=== PATIENT | male | born 1950 | race Caucasian/White ===

== ENCOUNTER → 2017-06-01 | Outpatient (CLI) | payer MEDICARE ==
[~2017-06-01] MED LIST: ASPI-496 PO; GLIP10TA13 PO; METF10002 PO; METO50TA82 PO; SAW1CAPS2 PO; SIMV40TA3 PO
== END ==
LOC: CFH 07:56
PROVIDERS: ATTEND Internal Medicine Cardiovascular Disease
DX: I71.4 Abdominal aortic aneurysm, without rupture (principal); I10 Essential (primary) hypertension; E11.9 Type 2 diabetes mellitus without complications
CPT/HCPCS: 78452; 93017; 93978; A9502

== ENCOUNTER 2017-07-30 22:43 | Observation (INO) | payer MEDICARE ==
[~2017-07-30] VITALS: Ht 177.8 cm; Wt 84.3 kg
[2017-07-30] MEDS ORDERED: SODIUM CHLORIDE FLUSH 10ML SYR IVF ONE (23:30)
[2017-07-30 23:39] LABS: BASOPHILS # (AUTO) 0.03 x10^3/uL (0-0.1); BASOPHILS % (AUTO) 1 % (0-1); EOSINOPHILS # (AUTO) 0.32 x10^3/uL (0-0.4); EOSINOPHILS % (AUTO) 7 % (1-7); LYMPHOCYTES # (AUTO) 1.14 x10^3/uL (1-3.4); LYMPHOCYTES % (AUTO) 24 % (22-44); MD NO; MEAN CORPUSCULAR HEMOGLOBIN 31.9 pg (27.5-34.5); MEAN CORPUSCULAR HGB CONC 33.8 g/dL (33.2-36.2); MEAN CORPUSCULAR VOLUME 94.3 fL (81-97); MONOCYTES # (AUTO) 0.51 x10^3/uL (0.2-0.8); MONOCYTES % (AUTO) 11 % (2-9); NEUTROPHILS % (AUTO) 58 % (42-75); PLATELET COUNT 147 x10^3/uL (130-400); RED BLOOD COUNT 4.21 x10^6/uL (4.38-5.82); RED CELL DISTRIBUTION WIDTH 14.1 % (9.4-14.8)
[2017-07-30] MEDS ORDERED: ASPIRIN 81 MG TABLET CHEW ONE (23:43)
[2017-07-30 23:51] LABS: ALANINE AMINOTRANSFERASE 24 U/L (12-78); ALBUMIN 3.8 g/dL (3.4-5.0); ANION GAP 8 mmol/L (5-15); CALCIUM 8.8 mg/dL (8.5-10.1); CHLORIDE 105 mmol/L (98-107); CREATININE 1.51 mg/dL (0.7-1.3)
[2017-07-30 23:55] LABS: ALKALINE PHOSPHATASE 74 U/L (45-117); BILIRUBIN,TOTAL 0.6 mg/dL (0.2-1.0); TOTAL PROTEIN 7.1 g/dL (6.4-8.2); TROPONIN I < 0.015 ng/mL (0.000-0.045)
[2017-07-31] MEDS ORDERED: ASPIRIN 81 MG TABLET CHEW PO ONE
[2017-07-31] MEDS ORDERED: MORPHINE SULFATE 4 MG/ML, 1ML IVPush PRN (01:00)
[2017-07-31] MEDS ORDERED: ONDANSETRON 2MG/ML, 2ML IVPush PRN ×2 (01:00→01:30)
[2017-07-31] MEDS ORDERED: SODIUM CHLORIDE 0.9% 1,000 ML IV SCH (01:25)
[2017-07-31] MEDS ORDERED: ACETAMINOPHEN 325 MG TABLET PO PRN (01:30)
[2017-07-31] MEDS ORDERED: DEXTROSE 50%, 50ML SYRINGE IVPush PRN (01:30)
[2017-07-31] MEDS ORDERED: hydrALAzine 20 MG/ML, 1ML IVPush PRN (01:30)
[2017-07-31] MEDS ORDERED: DEXTROSE 4 GM TAB.CHEW PO PRN (01:30)
[2017-07-31] MEDS ORDERED: GLUCAGON 1 MG IM PRN (01:30)
[2017-07-31] MEDS ORDERED: TAMS0.4C2 PO (01:38)
[2017-07-31] MEDS ORDERED: CLOP75TA52 PO (01:38)
[2017-07-31 02:22] LABS: TROPONIN I < 0.015 ng/mL (0.000-0.045)
[2017-07-31 07:47] VITALS: BP 146/81
[2017-07-31 08:19] LABS: ANION GAP 8 mmol/L (5-15); CALCIUM 8.4 mg/dL (8.5-10.1); CHLORIDE 108 mmol/L (98-107); CREATININE 1.13 mg/dL (0.7-1.3)
[2017-07-31 08:23] LABS: TROPONIN I < 0.015 ng/mL (0.000-0.045)
[2017-07-31] MEDS ORDERED: ASPIRIN 81 MG TABLET EC PO SCH (09:00)
[2017-07-31] MEDS ORDERED: TEMPLATE NON-FORMULARY MED. (Metformin Hcl** 1,000 MG) PO SCH (09:00)
[2017-07-31] MEDS ORDERED: [UNRECOGNIZED DRUG - OTHER] PO SCH (09:00)
[2017-07-31] MEDS ORDERED: SODIUM CHLORIDE FLUSH 10ML SYR IVF SCH (09:00)
[2017-07-31] MEDS ORDERED: SAW PALMETTO XTR PO SCH (09:00)
[2017-07-31] MEDS ORDERED: CLOPIDOGREL 75 MG TABLET PO SCH (09:00)
[2017-07-31] MEDS ORDERED: TAMSULOSIN 0.4 MG CAP.ER.24H PO SCH (09:00)
[2017-07-31] MEDS ORDERED: METOPROLOL TARTRATE 50 MG TABLET PO SCH (09:00)
[2017-07-31] MEDS ORDERED: ZINC PICOLIN PO SCH (09:00)
[2017-07-31] MEDS ORDERED: ASPIRIN 81 MG TABLET CHEW ONE (10:01)
[2017-07-31] MEDS ORDERED: CLOPIDOGREL 75 MG TABLET ONE (10:01)
[2017-07-31] MEDS ORDERED: TAMSULOSIN 0.4 MG CAP.ER.24H ONE (10:01)
[2017-07-31] MEDS ORDERED: METOPROLOL TARTRATE 50 MG TABLET ONE (10:01)
[2017-07-31] MEDS ORDERED: SIMVASTATIN 40 MG TABLET PO SCH (21:00)
== END 2017-07-31 11:48 | disposition home or self-care (01) ==
LOC: ED 23:59 → EDIP 07-31 01:09 → INTOOBSV 07-31 01:09 → DCLOUNGE 07-31 11:45
PROVIDERS: ADMIT Hospitalist; ATTEND Hospitalist
DX: R07.89 Other chest pain (principal); E11.9 Type 2 diabetes mellitus without complications; I25.10 Atherosclerotic heart disease of native coronary artery without angina pectoris; I10 Essential (primary) hypertension; E78.5 Hyperlipidemia, unspecified; E78.00 Pure hypercholesterolemia, unspecified; I25.2 Old myocardial infarction; N28.9 Disorder of kidney and ureter, unspecified; N17.9 Acute kidney failure, unspecified; Z95.5 Presence of coronary angioplasty implant and graft; Z87.442 Personal history of urinary calculi
CPT/HCPCS: 36415; 71045; 80048; 80053; 82962; 84484; 85025; 93005; 96360; 96361; 99285; G0378; J7030

== ENCOUNTER 2017-11-17 23:38 | Emergency (ER) | payer MEDICARE ==
[~2017-11-17] VITALS: Ht 177.8 cm; Wt 81.0 kg
[~2017-11-17 23:38] MED LIST changes: +CLOP75TA52 PO; +TAMS0.4C2 PO
[2017-11-17 23:40] VITALS: BP 168/92
[2017-11-18 00:15] LABS: BASOPHILS # (AUTO) 0.02 x10^3/uL (0-0.1); BASOPHILS % (AUTO) 0 % (0-1); EOSINOPHILS # (AUTO) 0.23 x10^3/uL (0-0.4); EOSINOPHILS % (AUTO) 4 % (1-7); LYMPHOCYTES # (AUTO) 1.23 x10^3/uL (1-3.4); LYMPHOCYTES % (AUTO) 20 % (22-44); MD NO; MEAN CORPUSCULAR HEMOGLOBIN 32.2 pg (27.5-34.5); MEAN CORPUSCULAR HGB CONC 34.2 g/dL (33.2-36.2); MEAN CORPUSCULAR VOLUME 94.1 fL (81-97); MEAN PLATELET VOLUME 8.4 fL (7.4-10.4); MONOCYTES # (AUTO) 0.55 x10^3/uL (0.2-0.8); MONOCYTES % (AUTO) 9 % (2-9); NEUTROPHILS # (AUTO) 4.03 x10^3/uL (1.8-6.8); NEUTROPHILS % (AUTO) 67 % (42-75); PLATELET COUNT 174 x10^3/uL (130-400); RED BLOOD COUNT 4.91 x10^6/uL (4.38-5.82); RED CELL DISTRIBUTION WIDTH 13.5 % (9.4-14.8)
[2017-11-18 00:23] LABS: INTERNATIONAL NORMALIZED RATIO 0.97 (0.93-1.1)
[2017-11-18 00:26] LABS: ALANINE AMINOTRANSFERASE 30 U/L (12-78); ALBUMIN 4.5 g/dL (3.4-5.0); ANION GAP 7 mmol/L (5-15); CALCIUM 9.8 mg/dL (8.5-10.1); CHLORIDE 108 mmol/L (98-107)
[2017-11-18 00:29] LABS: ALKALINE PHOSPHATASE 63 U/L (45-117); BILIRUBIN,TOTAL 0.7 mg/dL (0.2-1.0); TOTAL PROTEIN 8.2 g/dL (6.4-8.2)
== END 2017-11-18 03:23 | disposition home or self-care (01) ==
LOC: ED 11-18 03:20
DX: S22.32XA Fracture of one rib, left side, initial encounter for closed fracture (principal); S09.8XXA Other specified injuries of head, initial encounter; I25.2 Old myocardial infarction; E11.9 Type 2 diabetes mellitus without complications; E78.00 Pure hypercholesterolemia, unspecified; I10 Essential (primary) hypertension; W18.39XA Other fall on same level, initial encounter; Y93.89 Activity, other specified; Y92.098 Other place in other non-institutional residence as the place of occurrence of the external cause; Y99.8 Other external cause status
CPT/HCPCS: 36415; 70450; 70486; 80053; 85025; 85610; 85730; 99285

== ENCOUNTER → 2018-05-30 | Outpatient (CLI) | payer MEDICARE ==
[~2018-05-30] MED LIST changes: +REGADENOSON 0.4 MG/5 ML SYRINGE ONE
== END | disposition home or self-care (01) ==
LOC: CFH 07:22
PROVIDERS: ATTEND Internal Medicine Cardiovascular Disease
DX: I10 Essential (primary) hypertension (principal); I25.10 Atherosclerotic heart disease of native coronary artery without angina pectoris; I25.2 Old myocardial infarction; Z95.5 Presence of coronary angioplasty implant and graft
CPT/HCPCS: 78452; 93017; A9502; J2785

== ENCOUNTER 2018-12-17 17:32 | Emergency (ER) | payer MEDICARE ==
[~2018-12-17] VITALS: Ht 177.8 cm; Wt 80.8 kg
[2018-12-17 19:19] VITALS: BP 127/72
== END 2018-12-17 19:21 | disposition home or self-care (01) ==
LOC: ED 19:15
DX: R07.89 Other chest pain (principal); I25.2 Old myocardial infarction; E11.9 Type 2 diabetes mellitus without complications; E78.00 Pure hypercholesterolemia, unspecified; I10 Essential (primary) hypertension; Z95.5 Presence of coronary angioplasty implant and graft
CPT/HCPCS: 36415; 71046; 80053; 84484; 85025; 93005; 99284

== ENCOUNTER → 2019-12-26 | Outpatient (CLI) | payer MEDICARE ==
[~2019-12-26] MED LIST changes: -SAW1CAPS2 PO; +SAW1CAPS6 PO; +SIMV40TA20 PO; -SIMV40TA3 PO
== END | disposition home or self-care (01) ==
LOC: CFH 08:35
PROVIDERS: ATTEND Internal Medicine Cardiovascular Disease
DX: I10 Essential (primary) hypertension (principal); Z95.5 Presence of coronary angioplasty implant and graft
CPT/HCPCS: 78452; 93017; A9502; J2785